=== PATIENT | female | born 1995 | race Caucasian/White ===

== ENCOUNTER 2018-01-24 12:37 | Emergency (ER) | payer SELFPAY ==
[~2018-01-24] VITALS: Ht 144.8 cm; Wt 63.6 kg
[2018-01-24 12:45] VITALS: BP 110/66; Ht 144.8 cm; Wt 63.6 kg
[2018-01-24] MEDS ORDERED: ZOFRAN4 MG PO (16:20)
[2018-01-24] MEDS ORDERED: BACTRIM DS1 TAB PO (16:20)
[2018-01-24] MEDS ORDERED: KEFLEX500 MG PO (16:20)
== END 2018-01-24 16:34 | disposition home or self-care (01) ==
LOC: D.ER 12:37
DX: L02.416 Cutaneous abscess of left lower limb (principal)